=== PATIENT | male | born 1970 | race Caucasian/White ===

== ENCOUNTER 2019-01-22 11:04 | Inpatient (IN) | payer OTHER, MEDICAID ==
[~2019-01-22] VITALS: Ht 177.8 cm; Wt 123.4 kg
--- NOTE | 2019-01-22 11:13 | NUR ---
PT TO ER BED 9
[2019-01-22 11:15] VITALS: BP 125/71
[2019-01-22] MEDS ORDERED: HYDR-5122 PO (11:46)
[2019-01-22] MEDS ORDERED: PANTOPRAZOLE 40 MG INJ VIAL IVP ONE (12:10)
--- NOTE | 2019-01-22 12:10 | NUR ---
PT C/O SQUEEZING ABD PAIN THAT STARTED AT 0530 TODAY. VOMIT X2 W/ COFFEE GROUND EMESIS AND RED BLOOD. DOES NOT COMPLAIN OF NAUSEA/DIARRHEA. PT TOOK 1 NORCO AT 1030 THIS MORNING FOR PAIN. HAD 2 DRINKS YESTERDAY. PT HAS 2 SLIPPED DISCS IN BACK AND TAKES 2 NORCO A DAY. PT HAS BEEN TAKING ENDOMETHACIN 50MG 1X A DAY FOR YEARS. PT HAD A GASTRIC SLEEVE IN MAR 2017. PT SITTING IN ROOM, RELAXED. MEDHX: GOUT, TOTAL KNEE REPLACEMENT, GASTRIC SLEEVE
--- NOTE | 2019-01-22 12:16 | NUR ---
PT TO RADIOLOGY VIA [facility]
[2019-01-22 13:06] LABS: BASOPHILS # (AUTO) 0.1 K/uL (0.00-0.22); BASOPHILS % (AUTO) 0.2 % (0.0-2.0); HEMATOCRIT 45.8 % (36-52); HEMOGLOBIN 15.2 g/dL (12.0-18.0); LYMPHOCYTES # (AUTO) 1.1 K/uL (2.0-11.5); MEAN CORPUSCULAR HEMOGLOBIN 30 pg (27-31); MEAN CORPUSCULAR HGB CONC 33 g/dL (33-37); MEAN CORPUSCULAR VOLUME 91.4 fL (80-94); MONOCYTES # (AUTO) 1.7 K/uL (0.8-1.0); MONOCYTES % (AUTO) 7.9 % (1.7-9.3); NEUTROPHILS # (AUTO) 18.9 K/uL (1.8-7.7); NEUTROPHILS % (AUTO) 86.9 % (42.2-75.2); PLATELET COUNT (AUTO) 294 K/uL (140-450); RED BLOOD CELL COUNT(AUTO) 5.02 MIL/uL (4.20-6.10); RED CELL DISTRIBUTION WIDTH 14.6 % (11.6-13.7); WHITE BLOOD COUNT (AUTO) 21.8 K/uL (4.8-10.8)
[2019-01-22 13:25] LABS: APPEARANCE,URINE CLEAR (CLEAR); BILIRUBIN,URINE NEGATIVE (NEGATIVE); BLOOD, URINE 3+ (NEGATIVE); COLOR,URINE YELLOW (YELLOW); LEUKOCYTE ESTERASE ,URINE 1+ (NEGATIVE); NITRITE, URINE NEGATIVE (NEGATIVE); PH,URINE 5.5 (5.0-9.0); UGLUCOSE NEGATIVE (NEGATIVE)
[2019-01-22] MEDS ORDERED: MORPHINE SULFATE 4 MG/ML SYR IVP ONE (13:30)
[2019-01-22] MEDS ORDERED: ONDANSETRON 4 MG/2 ML VIAL IVP ONE (13:30)
[2019-01-22 13:33] LABS: ALBUMIN 3.4 g/dL (3.4-5.0); ANION GAP 13.5 (8-16); CARBON DIOXIDE 24.4 mmol/L (21-32); CREATININE 1.2 mg/dL (0.7-1.3); POTASSIUM 3.9 mmol/L (3.5-5.1); TOTAL BILIRUBIN 1.1 mg/dL (0.0-1.0)
[2019-01-22 13:48] LABS: WBC,URINE 20-60 /HPF (0-5)
--- NOTE | 2019-01-22 14:00 | NUR ---
AT PT BEDSIDE. PT LAYING COMFORTABLY IN BED.
[2019-01-22 15:30] VITALS: BP 127/78
[2019-01-22] MEDS ORDERED: LORazepam 2 MG/ML VIAL IVP PRN (15:30)
[2019-01-22] MEDS ORDERED: ALBUTEROL 0.083% 2.5 MG/3 ML NEBU INH PRN (15:30)
[2019-01-22] MEDS ORDERED: ONDANSETRON 4 MG/2 ML VIAL IVP PRN (15:30)
[2019-01-22] MEDS ORDERED: MORPHINE SULFATE 4 MG/ML SYR IVP PRN (15:30)
--- NOTE | 2019-01-22 15:30 | NUR ---
RECEIVED PT FROM ED NURSE. PT IS AWAKE AND ALERT, AND AMBULATORY. NO S/S OF ANY ACUTE DISTRESS. PT IS C/O OF SOME MID-ABDOMINAL PAIN, BUT STATES THAT IT IS BEARABLE AND HE DOESN'T NEED ANY PAIN MEDICINE FOR IT. PT IS ON ROOM AIR, SKIN INTACT. IV SITE IS ON THE L AC, 20 G. PT IS ACCOMPANIED BY HIS TWO ADULT CHILDREN. CALL LIGHT GIVEN WITHIN REACH. VS: BP 127/78, HR 92, O2 99%, TEMP 99.4, RR 18. WILL CONTINUE TO MONITOR.
--- NOTE | 2019-01-22 15:34 | NUR ---
Pt report given to MIGUELINA MONTALVO. ROOM 105B. Transfer of care at this time.
[2019-01-22] MEDS: NACL 0.9% 1,000 ML IV SCH (16:07)
--- NOTE | 2019-01-22 18:15 | NUR ---
PT SATES THAT HE CANNOT EAT RED MEAT (HE GOT A MEAT LOAF FOR HIS DINNER) I OFFERED HIM PLAIN CHICKEN SALAD, [place] DOES NOT HAVE ANY OTHER MEAT SIDES. PT WAS WILLING TO EAT THE CHICKEN SALAD.
--- NOTE | 2019-01-22 18:40 | NUR ---
UNASYN IV HUNG AND DRIPPING, PT IS TOLERATING WELL.
[2019-01-22] MEDS: AMPICILLIN/SULBACTAM 1.5 GM in NACL 0.9% 50 ML IV SCH (18:41)
--- NOTE | 2019-01-22 19:25 | NUR ---
PT ENDORSED TO NURSE LEADER NURSE IN STABLE CONDITION
--- NOTE | 2019-01-22 19:25 | NUR ---
RECIEVED PT. AAOX4 , NID , ON RA , WITH COMPLAINING OF MINIMAL HEADACHE HE SAID , IV SITE INTACT, PLAN OF CARE DISCUSSED AND VERBALIZE UNDERSTANDING , CALL LIGHT WITHIN REACH , WILL CONT. TO MONITOR. Addendum: 01/23/19 at 0353 by Rosmery Lambert RN PT DENIES ABDL. PAIN AT THIS TIME BUT C/O HEADACHE - BP 110/70 - PT REQUESTING PAIN PILL FOR FAJARDO .
[2019-01-22 20:11] VITALS: BP 117/70
[2019-01-22] MEDS: HYDROcodone/APAP 5/325 MG 1 TAB TAB PO PRN (20:13)
--- NOTE | 2019-01-22 22:00 | NUR ---
MADE ROUNDS - SLEEPING . CALL LIGHT WITHIN REACH.
[2019-01-23] VITALS: BP 110/60
--- NOTE | 2019-01-23 | NUR ---
MADE ROUNDS , RESP. EVEN AND UNLABORED , NO COMPLAIN MADE AT THIS TIME , CALL LIGHT WITHIN REACH - WILL CONT. TO MONITOR.
[2019-01-23] MEDS: AMPICILLIN/SULBACTAM 1.5 GM in NACL 0.9% 50 ML IV SCH ×4 (00:20→18:17)
--- NOTE | 2019-01-23 02:00 | NUR ---
MADE ROUNDS - SLEEPING - CALL LIGHT WITHIN REACH.
[2019-01-23] MEDS: HYDROcodone/APAP 5/325 MG 1 TAB TAB PO PRN ×2 (03:12→22:05)
--- NOTE | 2019-01-23 03:12 | NUR ---
C/O BADOMINAL PAIN - WILL MEDICATE ORDERED. IV SITE INTACT , CALL LIGHT WITHIN REACH. WILL CONT. TO MONITOR
[2019-01-23] MEDS: NACL 0.9% 1,000 ML IV SCH ×3 (03:23→21:30)
[2019-01-23 04:00] VITALS: BP 105/60
--- NOTE | 2019-01-23 07:21 | NUR ---
RECEIVED BEDSIDE REPORT FROM METALLURGICAL TESTER. PATIENT IS AWAKE, ALERT AND ORIENTEDX4. NO SIGNS OF DISTRESS ON RA. SKIN IS INTACT. PATIENT IS AMBULATORY. CONTINENT. IV ON L AC 20G INFUSING NS AT 100. CLEAN, DRY AND INTACT. NO COMPLAINTS AT THIS TIME. ABLE TO MAKE NEEDS KNOWN. WILL CONTINUE TO MONITOR THE PATIENT.
[2019-01-23 07:48] LABS: HEMATOCRIT 43.5 % (36-52); HEMOGLOBIN 14.2 g/dL (12.0-18.0); MEAN CORPUSCULAR HEMOGLOBIN 30 pg (27-31); MEAN CORPUSCULAR HGB CONC 33 g/dL (33-37); MEAN CORPUSCULAR VOLUME 92.5 fL (80-94); PLATELET COUNT (AUTO) 284 K/uL (140-450); RED CELL DISTRIBUTION WIDTH 14.9 % (11.6-13.7)
[2019-01-23 08:00] VITALS: BP 119/81
[2019-01-23 08:07] LABS: ALBUMIN 2.8 g/dL (3.4-5.0); ANION GAP 14.2 (8-16); CARBON DIOXIDE 24.9 mmol/L (21-32); CREATININE 1.4 mg/dL (0.7-1.3); MAGNESIUM 1.5 mg/dL (1.8-2.4); POTASSIUM 4.1 mmol/L (3.5-5.1); TOTAL BILIRUBIN 1.5 mg/dL (0.0-1.0)
--- NOTE | 2019-01-23 08:21 | NUR ---
PATIENT HAS BEEN SCREENED AND CATEGORIZED MODERATE NUTRITION RISK. PATIENT WILL BE SEEN WITHIN 3-5 DAYS OF ADMISSION. 01/25/19JASKARAN GUTIERREZ [address]
[2019-01-23 08:22] LABS: WHITE BLOOD COUNT (AUTO) 28.4 K/uL (4.8-10.8)
[2019-01-23 09:09] LABS: LYMPHOCYTES % (MANUAL) 4 % (20-46); MONOCYTES % (MANUAL) 4 % (5-12)
[2019-01-23] MEDS: ENOXAPARIN 30 MG/0.3 ML SYR SUBQ SCH (09:30)
[2019-01-23] MEDS ORDERED: MAG SULF 2000 MG/WATER PREMIX 50 ML IV SCH (09:30)
--- NOTE | 2019-01-23 09:34 | NUR ---
PATIENT IS ASKING IF HE CAN GO AMA. HE SAID THE DOCTOR HASNT SEEN HIM. I EXPLAINED THAT THE DOCTOR WILL BE COMING TODAY. HE SAID HE WONT LEAVE AT THIS TIME AND UNDERSTANDS THE RISKS OF GOING AMA. ADMINISTERED MEDS, EDUCATED PATIENT ON SIDE EFFECTS. PATIENT TOLERATED WELL. WILL CONTINUE TO MONITOR THE PATIENT.
--- NOTE | 2019-01-23 10:44 | NUR ---
DR BIRMINGHAM SAW THE PATIENT, PER PATIENT DR BIRMINGHAM WILL DISCHARGE HIM TODAY. WILL AWAIT THE ORDERS.
[2019-01-23] MEDS ORDERED: VANCOMYCIN PER PHARMACY MC PRN (10:50)
--- NOTE | 2019-01-23 12:30 | NUR ---
TEMP OF 102. TOOK OFF BLANKETS AND PLACED ICE PACKS
[2019-01-23] MEDS: ACETAMINOPHEN 325 MG TAB PO PRN ×2 (13:14→18:30)
[2019-01-23] MEDS: metroNIDAZOLE 500 MG/NS PREMIX 100 ML IV SCH ×2 (13:15→20:26)
--- NOTE | 2019-01-23 13:21 | NUR ---
ADMINISTERED ORDERED ANTIBIOTIC AND PRN FEVER MEDICATION. PATIENT TOLERATED WELL. EDUCATED ON SIDE EFFECTS. WILL CONTINUE TO MONITOR THE PATIENT.
[2019-01-23] MEDS: VANCOMYCIN 1,250 MG in DEXTROSE 5% 500 ML IV SCH (14:39)
--- NOTE | 2019-01-23 14:41 | NUR ---
PATIENT IS LAYING IN THE BED WITH ICE PACKS. TEMP IS AT 99.6 AT THIS TIME. ADMINISTERED JO VANCO. PATIENT TOLERATED WELL. EDUCATED ON SIDE EFFECTS.
[2019-01-23 16:00] VITALS: BP 121/76
--- NOTE | 2019-01-23 16:12 | NUR ---
PATIENT IN NO DISTRESS. FAMILY AT BEDSIDE. WILL CONTINUE TO MONITOR
--- NOTE | 2019-01-23 18:20 | NUR ---
ADMINISTERED JO ANTIBIOTICS. EDUCATED ON SIDE EFFECTS. WILL CONTINUE TO MONITOR THE PATIENT
--- NOTE | 2019-01-23 19:14 | NUR ---
GAVE BEDSIDE REPORT FROM CNC SERVICE ENGINEER NURSE. CNC SERVICE ENGINEER TO RECHECK TEMP. PATIENT ENDORSED IN STABLE CONDITION
--- NOTE | 2019-01-23 19:14 | NUR ---
RECIEVED PT AAOX4 , NID , IV SITE INTACT AND PATENT , LATEST TEMP 99.9F , DENIES PAIN AT THIS TIME , PLAN OF CARE DISCUSSED AND VERBALIZE UNDERSTANDING , FOR CHAMP . CALL LIGHT WITHIN REACH. WILL CONT. TO MONITOR.
[2019-01-23] MEDS: PANTOPRAZOLE 40 MG INJ VIAL IVP SCH (20:31)
[2019-01-24] MEDS: AMPICILLIN/SULBACTAM 1.5 GM in NACL 0.9% 50 ML IV SCH ×3 (00:07→11:22)
[2019-01-24] MEDS: VANCOMYCIN 1,250 MG in DEXTROSE 5% 500 ML IV SCH ×2 (02:44→14:34)
[2019-01-24] MEDS ORDERED: VANCOMYCIN 500 MG VIAL ONE ×2 (02:45→02:49)
[2019-01-24 04:00] VITALS: BP 111/62
[2019-01-24] MEDS: metroNIDAZOLE 500 MG/NS PREMIX 100 ML IV SCH ×2 (05:05→12:47)
--- NOTE | 2019-01-24 07:05 | NUR ---
RECEIVED BEDSIDE REPORT FROM DENTAL ASSISTANT NURSE. PATIENT IS AWAKE, ALERT AND ORIENTEDX4. NO SIGNS OF DISTRESS ON RA. SKIN IS INTACT. IV ON L AC 20G INFUSING NS AT 100. CLEAN, DRY AND INTACT. PATIENT IS AMBULATORY. CONTINENT. NO COMPLAINTS AT THIS TIME. BED IN LOW POSITION. CALL LIGHT WITHIN REACH. WILL CONTINUE TO MONITOR THE PATIENT
[2019-01-24 07:07] LABS: BASOPHILS # (AUTO) 0.1 K/uL (0.00-0.22); BASOPHILS % (AUTO) 0.4 % (0.0-2.0); HEMATOCRIT 40.1 % (36-52); HEMOGLOBIN 13.2 g/dL (12.0-18.0); LYMPHOCYTES # (AUTO) 0.9 K/uL (2.0-11.5); LYMPHOCYTES % (AUTO) 4.8 % (20.5-51.1); MEAN CORPUSCULAR HEMOGLOBIN 30 pg (27-31); MEAN CORPUSCULAR HGB CONC 33 g/dL (33-37); MEAN CORPUSCULAR VOLUME 91.9 fL (80-94); MONOCYTES % (AUTO) 5.6 % (1.7-9.3); NEUTROPHILS # (AUTO) 16.2 K/uL (1.8-7.7); NEUTROPHILS % (AUTO) 89.2 % (42.2-75.2); PLATELET COUNT (AUTO) 217 K/uL (140-450); RED BLOOD CELL COUNT(AUTO) 4.36 MIL/uL (4.20-6.10); RED CELL DISTRIBUTION WIDTH 14.7 % (11.6-13.7); WHITE BLOOD COUNT (AUTO) 18.2 K/uL (4.8-10.8)
[2019-01-24 07:42] LABS: ANION GAP 11.7 (8-16); CARBON DIOXIDE 25.2 mmol/L (21-32); CREATININE 1.4 mg/dL (0.7-1.3); POTASSIUM 3.9 mmol/L (3.5-5.1)
[2019-01-24 08:00] VITALS: BP 127/81
[2019-01-24] MEDS: ENOXAPARIN 30 MG/0.3 ML SYR SUBQ SCH (09:03)
[2019-01-24] MEDS: PANTOPRAZOLE 40 MG INJ VIAL IVP SCH (09:03)
[2019-01-24] MEDS: HYDROcodone/APAP 5/325 MG 1 TAB TAB PO PRN (09:03)
[2019-01-24] MEDS: NACL 0.9% 1,000 ML IV SCH (09:15)
--- NOTE | 2019-01-24 09:15 | NUR ---
ADMINISTERED PRN PAIN MED AND JO MEDICATIONS. PATIENT TOLERATED WELL. EDUCATED ON SIDE EFFECTS. WILL CONTINUE TO MONITOR THE PATIENT.
--- NOTE | 2019-01-24 11:25 | NUR ---
ADMINISTERED JO ANTIBIOTICS. EDUCATED PATIENT ON SIDE EFFECTS. NO SIGNS OF DISTRESS. WILL CONTINUE TO MONITOR THE PATIENT
--- NOTE | 2019-01-24 12:48 | NUR ---
ADMINISTERED JO ANTIBIOTICS. PATIENT TOLERATED WELL. WILL CONTINUE TO MONITOR. FAMILY AT BEDSIDE
--- NOTE | 2019-01-24 14:36 | NUR ---
ADMINISTERED ANTIBIOTICS ORDERED. PATIENT TOLERATING WELL. WILL CONTINUE TO MONITOR THE PATIENT
[2019-01-24] MEDS ORDERED: CIPR500T4 PO (15:25)
[2019-01-24 16:00] VITALS: BP 136/85
--- NOTE | 2019-01-24 16:13 | NUR ---
EDUCATED PATIENT ON DISEASE PROCESS, ABN S/SX, WHEN TO GO TO THE ER, EDUCATED ON MEDS, GAVE PRESCRIPTION, EDUCATED ON FOLLOW UP W PCP, HE SAID HE HAS AN APPOINTMENT NEXT WEEK. FOLLOW UP W DR SPENEC, PATIENT VERBALIZED UNDERSTANDING. PATIENT SIGNED ALL PAPERWORK. HE WILL LEAVE WHEN THE VANCO IS DONE. PATIENT NOT A CANDIDATE FOR PNA, FLU IS NOT IN SEASON.
--- NOTE | 2019-01-24 17:00 | NUR ---
PATIENTS VANCO IS DONE. DISCONNECTED AND REMOVED IV, TIP INTACT. ID BANDS REMOVED. PATIENT CHANGED AND LEFT IN STABLE CONDITION, WHEELCHAIR OUT, PATIENT TO DRIVE HOME.
== END 2019-01-24 17:00 | disposition home or self-care (01) | DRG 871 ==
LOC: MED 11:04 → MTU 15:08
PROVIDERS: ADMIT Internal Medicine Pulmonary Disease; ATTEND Internal Medicine Pulmonary Disease
DX: A41.9 Sepsis, unspecified organism (principal); K29.01 Acute gastritis with bleeding; N12 Tubulo-interstitial nephritis, not specified as acute or chronic; N17.9 Acute kidney failure, unspecified; M10.9 Gout, unspecified; E66.9 Obesity, unspecified; E83.42 Hypomagnesemia; T39.395A Adverse effect of other nonsteroidal anti-inflammatory drugs [NSAID], initial encounter; Z68.39 Body mass index [BMI] 39.0-39.9, adult; G89.29 Other chronic pain; Z96.651 Presence of right artificial knee joint; Z98.84 Bariatric surgery status; Y92.89 Other specified places as the place of occurrence of the external cause
CPT/HCPCS: 36415; 76705; 80048; 80053; 80202; 81001; 83690; 83735; 85025; 85610; 85730; 86886; 86900; 86901; 87081; 87086; 87186; 93005; 96374; 96375; 99285; C9113; J0295; J1650; J2270; J2405; J3370; J3475; J3490; J7030; J7060; Q0092

== ENCOUNTER 2020-01-25 18:24 | Emergency (ER) | payer MEDICARE, MEDICAID, SELFPAY ==
[~2020-01-25] VITALS: Ht 177.8 cm; Wt 128.8 kg
[~2020-01-25 18:24] MED LIST: CIPR500T4 PO
[2020-01-25 18:35] VITALS: BP 119/73
[2020-01-25] MEDS ORDERED: ACETAMINOPHEN EXTRA STRENGTH 500 MG TAB ONE (18:41)
[2020-01-25] MEDS ORDERED: ACETAMINOPHEN EXTRA STRENGTH 500 MG TAB PO ONE (18:45)
--- NOTE | 2020-01-25 18:49 | NUR ---
c/o headache with moist hacking cough x 2-3 days- and bodyaches adds started to feel today as he is unable to catch deep breath full clear speech, no accessory muscle use noted
--- NOTE | 2020-01-25 19:15 | NUR ---
RECIVED REPORT FROM CHIKA RN, CONTINUATION OF CARE.
--- NOTE | 2020-01-25 19:16 | NUR ---
JOELLE POMPA ASSESSING PT IN OF TENT.
--- NOTE | 2020-01-25 19:40 | NUR ---
XRAY AT BEDSIDE.
--- NOTE | 2020-01-25 20:30 | NUR ---
PT AMBULATED FROM OF TENT TO BED 3 WITH STEADY GAIT.
--- NOTE | 2020-01-25 20:43 | NUR ---
COVID SWAB DONE AND WALKED TO LAB
--- NOTE | 2020-01-25 21:03 | NUR ---
PT RESTING IN BED IN POSITION OF COMFORT, BED LOW AND LOCKED, SIDERAILS UP, WILL CONTINUE TO MONITOR
[2020-01-25 22:18] VITALS: BP 120/74
--- NOTE | 2020-01-25 22:18 | NUR ---
Patient discharged with v/s stable. Written and verbal after care instructions given and explained to parent/guardian. Parent/Guardian verbalized understanding of instructions. Ambulatory with by parent. All questions addressed prior to discharge. ID band removed. Parent/Guardian advised to follow up with PMD. Opportunity to ask questions provided and answered.
== END 2020-01-25 22:18 | disposition home or self-care (01) ==
LOC: MED 18:24
DX: U07.1 COVID-19 (principal); J18.9 Pneumonia, unspecified organism; I10 Essential (primary) hypertension; M10.9 Gout, unspecified; Z79.899 Other long term (current) drug therapy
CPT/HCPCS: 71045; 99284; U0003

== ENCOUNTER 2020-12-29 15:45 | Observation (INO) | payer MEDICARE, MEDICAID, SELFPAY ==
[~2020-12-29] VITALS: Ht 180.3 cm; Wt 134.7 kg
[2020-12-29 15:50] VITALS: BP 142/77
--- NOTE | 2020-12-29 16:23 | NUR ---
PT AMBULATED TO BED 03
--- NOTE | 2020-12-29 16:40 | NUR ---
PATIENT STATES HE FIRST EXPERIENCED SEVERE LEFT BACK, PAIN - TREATED WITH MOTRIN 200 MG X 2. PAIN RESOLVED FOR "A WHILE", PAIN THEN STARTED IN UPPER LEFT QUADRANT, TENDER TO PALP,BOWEL SOUNDS ARE PRESENT. DENIES NAUSEA OR VOMITING (DID SELF INDUCE VOMITING X 1 IN AN ATTEMPT TO DECREASE ABD PAIN) STATES HE NOTICED THAT HIS URINE WAS DARK. PATIENT IS STABLE, SPEAKS IN FULL SENTENCES, NO ACUTE DISTRESS AT THIS TIME. IS IN BED, LOW AND LOCKED FOR SAFETY.
[2020-12-29] MEDS ORDERED: DICYCLOMINE HCL LIQUID 20 MG, ALUMINUM HYD/MAG/SIMETHICONE 30 ML, LIDOCAINE VISCOUS 2% ... PO ONE ×3 (17:15)
--- NOTE | 2020-12-29 17:15 | NUR ---
ORDERS RECEIVED. IV ESTABLISHED IN RT FOREARM, LABS DRAWN AND SENT TO LAB.
--- NOTE | 2020-12-29 17:34 | NUR ---
TO CT VIA [facility]
[2020-12-29 17:39] LABS: BASOPHILS # (AUTO) 0.1 K/uL (0.00-0.22); BASOPHILS % (AUTO) 0.6 % (0.0-2.0); EOSINOPHILS # (AUTO) 0.1 K/uL (0-0.4); EOSINOPHILS % (AUTO) 0.9 % (0.0-4.0); HEMATOCRIT 46.5 % (36-52); HEMOGLOBIN 15.7 g/dL (12.0-18.0); LYMPHOCYTES # (AUTO) 4.2 K/uL (2.0-11.5); LYMPHOCYTES % (AUTO) 37.1 % (20.5-51.1); MEAN CORPUSCULAR HEMOGLOBIN 31 pg (27-31); MEAN CORPUSCULAR HGB CONC 34 g/dL (33-37); MEAN CORPUSCULAR VOLUME 90.6 fL (80-94); MONOCYTES # (AUTO) 0.8 K/uL (0.8-1.0); MONOCYTES % (AUTO) 7.3 % (1.7-9.3); NEUTROPHILS # (AUTO) 6.1 K/uL (1.8-7.7); NEUTROPHILS % (AUTO) 54.1 % (42.2-75.2); PLATELET COUNT (AUTO) 273 K/uL (140-450); RED BLOOD CELL COUNT(AUTO) 5.13 MIL/uL (4.20-6.10); RED CELL DISTRIBUTION WIDTH 15.1 % (11.6-13.7); WHITE BLOOD COUNT (AUTO) 11.4 K/uL (4.8-10.8)
[2020-12-29 17:52] LABS: APPEARANCE,URINE CLEAR (CLEAR); BILIRUBIN,URINE 1+ (NEGATIVE); BLOOD, URINE NEGATIVE (NEGATIVE); COLOR,URINE ORANGE (YELLOW); LEUKOCYTE ESTERASE ,URINE NEGATIVE (NEGATIVE); NITRITE, URINE NEGATIVE (NEGATIVE); UGLUCOSE NEGATIVE (NEGATIVE)
[2020-12-29 18:01] LABS: ALBUMIN 3.4 g/dL (3.4-5.0); ANION GAP 15.6 (8-16); CARBON DIOXIDE 24.4 mmol/L (21-32); CREATININE 1.2 mg/dL (0.6-1.3); TOTAL BILIRUBIN 2.4 mg/dL (0.0-1.0)
--- NOTE | 2020-12-29 19:20 | NUR ---
RECEIVED REPORT FROM KATIA SANTORO FOR CONTINUITY OF CARE
[2020-12-29] MEDS ORDERED: ALUMINUM HYD/MAG/SIMETHICONE 30 ML UDC ONE ×2 (19:24→19:25)
[2020-12-29] MEDS ORDERED: DICYCLOMINE HCL LIQUID 10 MG/5 ML UDC ONE ×2 (19:26→19:27)
--- NOTE | 2020-12-29 20:20 | NUR ---
PT IS RESTING IN BED, ALL NEEDS MET AT THIS TIME. FRIEND IS AT BEDSIDE
--- NOTE | 2020-12-29 20:31 | NUR ---
Dr. Rg examining patient.
[2020-12-29] MEDS ORDERED: NACL 0.9% 1,000 ML IV ONE (21:35)
[2020-12-29] MEDS ORDERED: KETOROLAC 15 MG/ML VIAL IVP ONE (22:15)
[2020-12-29] MEDS ORDERED: MORPHINE SULFATE 2 MG/ML SYR IVP PRN (22:20)
[2020-12-29] MEDS ORDERED: ONDANSETRON 4 MG/2 ML VIAL IVP PRN (22:20)
[2020-12-29] MEDS ORDERED: LORazepam 2 MG/ML VIAL IVP PRN (22:20)
--- NOTE | 2020-12-29 23:45 | NUR ---
Patient appears to be resting comfortably in bed. Vital Signs within normal limits. Respirations even and unlabored.
[2020-12-30] MEDS: NACL 0.9% 1,000 ML IV SCH ×2 (02:46→08:59)
--- NOTE | 2020-12-30 03:00 | NUR ---
OBTAINED VITAL SIGNS FOR PATIENT. VSS. ALL NEEDS MET AT THIS TIME
[2020-12-30] MEDS ORDERED: PIPERACILLIN/TAZOBACTAM 3.375 GM VIAL IV ONE ×2 (05:04→13:15)
[2020-12-30] MEDS: PIPERACILLIN/TAZOBACTAM 3.375 GM in DEXTROSE 5% 50 ML IV SCH ×2 (06:03→13:16)
--- NOTE | 2020-12-30 06:27 | NUR ---
PT AMBULATED TO RESTROOM
[2020-12-30 06:59] LABS: BASOPHILS # (AUTO) 0.1 K/uL (0.00-0.22); BASOPHILS % (AUTO) 0.6 % (0.0-2.0); EOSINOPHILS # (AUTO) 0.2 K/uL (0-0.4); EOSINOPHILS % (AUTO) 1.7 % (0.0-4.0); HEMATOCRIT 43.7 % (36-52); HEMOGLOBIN 14.7 g/dL (12.0-18.0); LYMPHOCYTES # (AUTO) 3.1 K/uL (2.0-11.5); LYMPHOCYTES % (AUTO) 33.1 % (20.5-51.1); MEAN CORPUSCULAR HEMOGLOBIN 31 pg (27-31); MEAN CORPUSCULAR HGB CONC 34 g/dL (33-37); MEAN CORPUSCULAR VOLUME 91.6 fL (80-94); MONOCYTES # (AUTO) 0.8 K/uL (0.8-1.0); MONOCYTES % (AUTO) 8.3 % (1.7-9.3); NEUTROPHILS # (AUTO) 5.3 K/uL (1.8-7.7); NEUTROPHILS % (AUTO) 56.3 % (42.2-75.2); PLATELET COUNT (AUTO) 262 K/uL (140-450); RED BLOOD CELL COUNT(AUTO) 4.77 MIL/uL (4.20-6.10); RED CELL DISTRIBUTION WIDTH 15.6 % (11.6-13.7); WHITE BLOOD COUNT (AUTO) 9.4 K/uL (4.8-10.8)
--- NOTE | 2020-12-30 07:22 | NUR ---
Report received from KATIA Wesley, care assumed.
--- NOTE | 2020-12-30 07:23 | NUR ---
GIVEN REPORT TO KATIA LEARY. TRANSFER OF CARE AT THIS TIME.
--- NOTE | 2020-12-30 07:38 | NUR ---
Patient picked up by reactor technician and taken via wheelchair.
[2020-12-30 07:43] LABS: ANION GAP 12.6 (8-16); CARBON DIOXIDE 24.5 mmol/L (21-32); MAGNESIUM 1.9 mg/dL (1.8-2.4); POTASSIUM 4.1 mmol/L (3.5-5.1); TOTAL BILIRUBIN 1.5 mg/dL (0.0-1.0)
--- NOTE | 2020-12-30 08:41 | NUR ---
PATIENT HAS BEEN SCREENED AND CATEGORIZED LOW NUTRITION RISK. PATIENT WILL BE SEEN WITHIN 7 DAYS OF ADMISSION. 01/05/[address]
--- NOTE | 2020-12-30 08:50 | NUR ---
Patient brought back from radiology via wheelchair
--- NOTE | 2020-12-30 08:53 | NUR ---
Patient ambulated to the restroom and back to his bed with a steady gait.
[2020-12-30] MEDS ORDERED: ENOXAPARIN 40 MG/0.4 ML SYR SUBQ SCH (09:00)
--- NOTE | 2020-12-30 09:53 | NUR ---
Patient resting comfortably in bed. Bed locked and in the lowest position, VSS, side rail up for patient safety, and call light within reach.
--- NOTE | 2020-12-30 10:39 | NUR ---
DC PLANNING: ANDREW SPOKE WITH NA AT [facility] ([phone]) CLINICAL UPDATE GIVEN WITH POSSIBLE DC THIS PM AFTER DR ANA PAULA HAMILTON. CM WILL FOLLOW.
--- NOTE | 2020-12-30 10:52 | NUR ---
Patient resting comfortably in bed. Bed locked and in the lowest position, VSS, side rail up for patient safety, and call light within reach.
--- NOTE | 2020-12-30 11:07 | NUR ---
Patient ambulated to the restroom with a steady gait.
--- NOTE | 2020-12-30 11:20 | NUR ---
Per Dr. Warren, patient is to be placed on a clear liquid diet. If patient tolerates the clear liquid diet, advance patient's diet and patient can possibly be discharged. If patient fails PO challenge, patient is to continue with admission.
--- NOTE | 2020-12-30 11:24 | NUR ---
Patient sitting up in bed, having clear liquids provided to him.
--- NOTE | 2020-12-30 12:08 | NUR ---
Patient denies any abdominal pain or nausea; per MDs instructions, patient's diet advanced. Patient given a tray and eating at the bedside.
--- NOTE | 2020-12-30 12:44 | NUR ---
Patient tolerated regular diet well; patient denies abdominal pain, nausea, or vomiting. Paged Dr. Warren.
--- NOTE | 2020-12-30 12:50 | NUR ---
Dr. Warren informed and aware that patient is tolerating a regular diet well. Dr. Warren states that there is currently no indication to take the gallbladder out and that patient possibly passed the stones. Per Dr. Warren, there is a high risk for stones to come back but he would have to be re-evaluated if the pain comes back and that he can follow up with PCP on an outpatient basis. Per Dr. Warren, currently doing rounds at another hospital but he will be in to see the patient. Patient notified and aware of Dr. Warren message.
--- NOTE | 2020-12-30 13:50 | NUR ---
Patient resting comfortably in bed. Bed locked and in the lowest position, VSS, side rail up for patient safety, and call light within reach.
--- NOTE | 2020-12-30 15:13 | NUR ---
Dr. Warren at the bedside evaluating patient.
[2020-12-30 15:44] VITALS: BP 125/82
--- NOTE | 2020-12-30 15:57 | NUR ---
Patient discharged with v/s stable. Written and verbal after care instructions given and explained. Patient verbalized understanding. Ambulatory with steady gait. All questions addressed prior to discharge. Advised to follow up with PMD.
[2020-12-30 15:58] VITALS: BP 125/82
--- NOTE | 2021-01-05 20:35 | NUR ---
LATE ENTRY--- ZOSYN IVPB DISCONTINUED AT 1350 AND 0.9% NS IVF DISCONTINUED AT 1557
== END 2020-12-30 15:58 | disposition home or self-care (01) ==
LOC: MED 15:45 → MMU 22:21
PROVIDERS: ADMIT Hospitalist; ATTEND Hospitalist
DX: K80.50 Calculus of bile duct without cholangitis or cholecystitis without obstruction (principal); Z20.822 Contact with and (suspected) exposure to COVID-19; D72.829 Elevated white blood cell count, unspecified; E66.9 Obesity, unspecified; Z79.899 Other long term (current) drug therapy
CPT/HCPCS: 36415; 74176; 76705; 78445; 80053; 81003; 83690; 83735; 85025; 87426; 93005; 96361; 96365; 96372; 96375; 99285; A9510; G0378; J1650; J1885; J2060; J2543; J7060

== ENCOUNTER 2021-03-08 14:43 | Emergency (ER) | payer OTHER, MEDICAID ==
[~2021-03-08] VITALS: Ht 180.3 cm; Wt 132.9 kg
[2021-03-08 15:04] VITALS: BP 167/92
--- NOTE | 2021-03-08 15:06 | NUR ---
PT TO WAIT IN LOBBY.
[2021-03-08] MEDS ORDERED: methylPREDNISolone SS 40 MG in WATER STERILE 1 ML IM ONE (15:45)
[2021-03-08] MEDS ORDERED: KETOROLAC 30 MG/ML VIAL IM ONE (15:45)
[2021-03-08] MEDS ORDERED: COLC-30 PO (15:48)
[2021-03-08] MEDS ORDERED: CEPH500C16 PO (15:48)
[2021-03-08] MEDS ORDERED: WATER STERILE 10 ML MC ONE (15:51)
[2021-03-08] MEDS ORDERED: methylPREDNISolone SS 40 MG/ML VIAL ONE (15:52)
--- NOTE | 2021-03-08 16:00 | NUR ---
50 Y/O MALE C/O RIGHT ELBOW PAIN 12/05 X1WEEK. PT STATES HE TOOK NORCO AT HOME LAST NIGHT WITH SOME RELIEF. DENIES N/V, DENIES FEVER/CHILLS. SWELLING AND RED BUMP NOTED TO RT ELBOW. REPORTS HE POPPED THE BUMP AND PUS CAME OUT. PMH: GOUT, GALLBLADER REMOVAL NKA
[2021-03-08 16:20] VITALS: BP 167/92
--- NOTE | 2021-03-08 16:20 | NUR ---
Patient discharged with v/s stable. Written and verbal after care instructions given and explained. Patient alert, oriented and verbalized understanding of instructions. Ambulatory with steady gait. All questions addressed prior to discharge. ID band removed. Patient advised to follow up with PMD. Rx of KEFLEX AND COLCHICINE given. Patient educated on indication of medication including possible reaction and side effects. Opportunity to ask questions provided and answered.
== END 2021-03-08 16:20 | disposition home or self-care (01) ==
LOC: MED 14:43
DX: M10.021 Idiopathic gout, right elbow (principal); L03.113 Cellulitis of right upper limb; I10 Essential (primary) hypertension; Z90.49 Acquired absence of other specified parts of digestive tract; Z79.899 Other long term (current) drug therapy
CPT/HCPCS: 96372; 99284; J1885; J2920